=== PATIENT | male | born 1980 | race Caucasian/White ===

== ENCOUNTER 2024-03-06 20:51 | Emergency (ER) | payer SELFPAY ==
[~2024-03-06] VITALS: Ht 170.2 cm; Wt 74.8 kg
[2024-03-06 21:08] VITALS: BP_SYST 161; PULSE 132; RESP 20; TEMP 99.2; O2SAT 99
[2024-03-06 21:55] VITALS: BP_SYST 148; PULSE 111; RESP 20; TEMP 99.2; O2SAT 99
== END 2024-03-06 21:55 ==
LOC: SED 20:51
DX: Z02.89 Encounter for other administrative examinations (principal)
CPT/HCPCS: 93005; 99283